=== PATIENT | male | born 1995 | race Caucasian/White ===

== ENCOUNTER 2023-11-26 14:37 | Emergency (ER) | payer OTHER, SELFPAY ==
--- NOTE | ~2023-11-26 | XR_ITS ---
XR hand LT min 3V Ordering provider: Mata Marc APRN History: . injury, bruising, pain, BLASTED WITH SAND . Comparison: None. FINDINGS: BONES: No acute fracture or dislocation. JOINT SPACES: Well maintained. SOFT TISSUES: Unremarkable. IMPRESSION: No acute osseous abnormality left hand. Reviewed, dictated and finalized at location A.
[2023-11-26 14:44] VITALS: BP 136/92; PULSE 90; RESP 16; TEMP 36.9; O2SAT 98
--- NOTE | 2023-11-26 16:24 | ED.UPPEXIN ---
HPI - Extremity Injury (Upper) General Chief Complaint: Extremity Injury, Upper Stated Complaint: hand injury Time Seen by Provider: 11/26/23 16:24 Source: patient Mode of arrival: ambulatory Limitations: no limitations History of Present Illness HPI narrative: Payam is a 27-year-old male patient presenting to the ER today with complaints of a left hand injury. He reports that he was using a sandblaster and the apparatus hose failed and sand starting coming back and hit his left hand States that he pulled some stand out of his skin however he is concerned about infection or further injury. Tetanus shot up-to-date the last 5 years Related Data Home Medications Medication Instructions Recorded Confirmed clonazepam 0.5 mg tablet 0.5 mg PO DAILY 05/10/19 dextroamphetamine-amphetamine ER 30 mg PO DAILY 05/10/19 30 mg 24hr capsule,extend release (Adderall XR) Allergies Allergy/AdvReac Type Severity Reaction Status Date / Time tramadol AdvReac Unknown Itching Verified 11/26/23 16:14 Review of Systems Review of Systems: Pertinent positives per HPI. Patient denies any fever, chills, rash, headache, visual changes, dizziness, cough, runny nose, sore throat, shortness of breath, chest pain, palpitations, nausea, vomiting, diarrhea, constipation, abdominal pain, or any urinary issues. [facility] Family History Family History Mother Diabetes mellitus Social History Social History Smoking status: Current every day smoker Alcohol intake: never Comments At the time of my signature, I reviewed and agree with the nursing past medical, surgical, social, and family history. There is no relevant family history pertinent to the patient complaint. Exam Narrative: General: Well-developed, well nourished, in no apparent distress Head: Normocephalic, atraumatic. Cardio: Regular rate and rhythm, s1 and s2 normal, no murmur appreciated. Resp: Clear to auscultation bilaterally, no rhonchi, rales, wheezing or rubs. Musculoskeletal: No deformity, mild tender to palpation, wound abrasions to the dorsal left hand due to sandblaster, no obvious foreign body left and the skin tissue, grossly normal range of motion, muscle strength strong and equal, peripheral pulse strong, no edema, no cyanosis, normal gait and station Course Course Emergency Course: Portions of this record may have been created with voice recognition software. Vital Signs Vital signs: Vital Signs Temperature 36.9 C 11/26/23 14:44 Pulse Rate 90 11/26/23 14:44 Respiratory Rate 16 11/26/23 14:44 Blood Pressure 136/92 H 11/26/23 14:44 Pulse Oximetry 98 11/26/23 14:44 Temperature 36.9 C 11/26/23 14:44 Pulse Rate 90 11/26/23 14:44 Respiratory Rate 16 11/26/23 14:44 Blood Pressure 136/92 H 11/26/23 14:44 Pulse Oximetry 98 11/26/23 14:44 Vital signs reviewed MDM - Extremity Injury (Upper) MDM Narrative Medical decision making narrative: At the time of visit patient is resting comfortably on the exam table. Patient appears to be nontoxic. Diagnostics: X-ray negative for any signs of fracture or malalignment. Plan: I suspect patient has the dorsal hand abrasion due to sandblaster. Tetanus is up-to-date per patient. Supportive measures were discussed with the patient and they voiced understanding discharge instructions and agrees to treatment plan. Return precautions reviewed Discharge Plan Discharge Clinical Impression: Abrasion of hand Qualifiers: Encounter type: initial encounter Laterality: left Qualified Code(s): S60.512A - Abrasion of left hand, initial encounter Patient Disposition: Home, Self-Care Condition: Stable Instructions: Antibiotic Form, Abrasion (ED) Additional Instructions: Suspect patient has an abrasion to the left hand No obvious foreign body left with
== END 2023-11-26 16:43 | disposition home or self-care (01) ==
PROVIDERS: Emergency Provider Nurse Practitioner Family; PCP Family Medicine
DX: S60.512A Abrasion of left hand, initial encounter (principal); W31.1XXA Contact with metalworking machines, initial encounter
CPT/HCPCS: 73130; 99283